=== PATIENT | female | born 1970 | race Hispanic/Latino ===

== ENCOUNTER → 2016-05-24 | Outpatient (CLI) | payer OTHER ==
[~2016-05-24] MED LIST: DOCU100C37 PO; FERR-74 PO; HYDR-3816 PO; IBUP-1773 PO; SIME80TA16 PO
--- NOTE | 2016-05-24 16:02 | Diagnostic Imaging Report ---
INDICATION: Uterine fibroids. EXAMINATION: Pelvic sonogram. FINDINGS: The uterus measures 12.0 x 10.1 x 9.1 cm. There is a large fibroid in the uterine fundus measuring 7.3 x 6.5 x 7.4 cm which has not appreciably changed in size compared to the exam from 06/04/2015. The ovaries were not seen. IMPRESSION: Large uterine fibroid which does not appear to have increased in size compared to the prior exam done on 06/04/2015. Dictated by: Dictated on workstation # [id number]
== END ==
LOC: RAD 13:19
PROVIDERS: ATTEND Obstetrics & Gynecology
DX: D25.2 Subserosal leiomyoma of uterus (principal); D50.0 Iron deficiency anemia secondary to blood loss (chronic)
CPT/HCPCS: 76830; 76856

== ENCOUNTER 2016-06-20 10:41 | Outpatient (CLI) | payer OTHER ==
[~2016-06-20] VITALS: Ht 149.9 cm; Wt 59.4 kg
[2016-06-20] MEDS ORDERED: FERR-74 PO (10:54)
[2016-06-20 10:55] VITALS: BP 121/76
[2016-06-20 11:28] LABS: BASOPHILS % (AUTO) 0 % (0-10); EOSINOPHILS # (AUTO) 0.2 10^3/uL (0.0-0.3); EOSINOPHILS % (AUTO) 3 % (0-10); LYMPHOCYTES # (AUTO) 2.1 X 10^3 (1.0-4.0); LYMPHOCYTES % (AUTO) 29 % (12-44); MEAN CORPUSCULAR HEMOGLOBIN 28 PG (25-34); MEAN CORPUSCULAR HGB CONC 33 G/DL (32-36); MEAN CORPUSCULAR VOLUME 83 FL (80-99); MEAN PLATELET VOLUME 11.6 FL (7.4-10.4); MONOCYTES # (AUTO) 0.5 X 10^3 (0.0-1.0); MONOCYTES % (AUTO) 7 % (0-12); NEUTROPHILS # (AUTO) 4.4 X 10^3 (1.8-7.8); NEUTROPHILS % (AUTO) 60 % (42-75); PLATELET COUNT 273 10^3/uL (130-400); RED BLOOD COUNT 4.66 10^6/uL (4.35-5.85); RED CELL DISTRIBUTION WIDTH 20.4 % (10.0-14.5); WHITE BLOOD COUNT 7.2 10^3/uL (4.3-11.0)
[2016-06-26] MEDS ORDERED: HYDR-3816 PO (16:54)
[2016-06-26] MEDS ORDERED: DOCU100C37 PO (16:54)
[2016-06-26] MEDS ORDERED: SIME80TA16 PO (16:54)
[2016-06-26] MEDS ORDERED: IBUP-1773 PO (16:54)
== END 2016-06-20 13:24 | disposition home or self-care (01) ==
LOC: PREOP 10:41
PROVIDERS: ATTEND Obstetrics & Gynecology
DX: Z01.812 Encounter for preprocedural laboratory examination (principal); Z11.2 Encounter for screening for other bacterial diseases; D25.9 Leiomyoma of uterus, unspecified; D50.9 Iron deficiency anemia, unspecified
CPT/HCPCS: 36415; 85025; 86850; 86900; 86901; 87081

== ENCOUNTER 2016-06-26 06:24 | Day surgery (SDC) | payer OTHER ==
[~2016-06-26] VITALS: Ht 149.9 cm; Wt 59.4 kg
[~2016-06-26 06:24] MED LIST changes: -DOCU100C37 PO; -HYDR-3816 PO; -IBUP-1773 PO; -SIME80TA16 PO
[2016-06-26] MEDS ORDERED: metroNIDAZOLE 500MG/100ML IVPB 100 ML ONE (06:50)
[2016-06-26] MEDS ORDERED: NS (IVPB) 50 ML ONE (06:50)
[2016-06-26] MEDS ORDERED: ceFAZolin 1,000 MG (ANCEF) VIAL ONE (06:50)
[2016-06-26] MEDS ORDERED: proPOfol 200 MG/20 ML (DIPRIVAN) VIAL IV ONE (07:05)
[2016-06-26] MEDS ORDERED: fentaNYL INJECTION 250 MCG/5 ML AMP ONE (07:05)
[2016-06-26] MEDS ORDERED: MIDAZOLAM 2 MG/2 ML (VERSED) VIAL ONE (07:05)
[2016-06-26] MEDS ORDERED: ROCURONIUM 50 MG/5 ML (ZEMURON) VIAL IV ONE (07:05)
[2016-06-26 07:12] LABS: ALANINE AMINOTRANSFERASE 78 U/L (0-55); ALBUMIN 4.1 G/DL (3.2-4.5); ANION GAP 11 MMOL/L (5-14); ASPARTATE AMINO TRANSFERASE 62 U/L (5-34); BILIRUBIN,TOTAL 0.2 MG/DL (0.1-1.0); BLOOD UREA NITROGEN 14 MG/DL (7-18); BUN/CREATININE RATIO 21; CARBON DIOXIDE 24 MMOL/L (21-32); CHLORIDE 107 MMOL/L (98-107); CREATININE SERUM 0.68 MG/DL (0.60-1.30); GFR ESTIMATED > 60; GLUCOSE 109 MG/DL (70-105); POTASSIUM 3.3 MMOL/L (3.6-5.0); SODIUM 142 MMOL/L (135-145); TOTAL PROTEIN 7.2 G/DL (6.4-8.2)
[2016-06-26] MEDS ORDERED: BUP/EPI 0.25% 1:200,000 (MARCAINE) 30 ML VIAL ONE (07:13)
[2016-06-26] MEDS ORDERED: CATHETER FLUSH 10 ML SYR IV PRN (07:15)
[2016-06-26] MEDS ORDERED: ceFAZolin 1 GM/NS 50 ML IVPB IV ONE ×2 (07:15)
[2016-06-26] MEDS ORDERED: metroNIDAZOLE 500 MG/100 ML IVPB (PRE-MIX) IV ONE (07:15)
--- NOTE | 2016-06-26 07:17 | Progress Note-Pre Operative ---
Pre-Operative Progress Note H&P Reviewed The H&P was reviewed, patient examined and no changes noted. Date H&P Reviewed: Jun 26, 2016 Time H&P Reviewed: 07:16 Pre-Operative Diagnosis: Abnormal uterine bleeding, uterine fibroid (failed medical mgmnt), anemia JOSEP REYNA MD Jun 26, 2016 07:17
[2016-06-26] MEDS ORDERED: LACTATED RINGERS 1,000 ML IV SCH ×2 (07:30→12:10)
[2016-06-26 07:33] VITALS: BP 134/78
--- NOTE | 2016-06-26 07:57 | OB/GYN Operative Report ---
Operative Report Date of Procedure: June 26, 2016 Preoperative Diagnosis: 45 y/o female with symptomatic uterine fibroids, abnormal uterine bleeding, failed medical management, iron deficiency anemia Postoperative Diagnosis: Same Procedure: Dilatation and curettage, robotic assisted total laparoscopic hysterectomy (uterine weight > 250g), bilateral salpingectomy, cystoscopy Surgeon: Josep Potter MD Assistants: Brittany Zee APRN who was medically necessary for retraction and exposure of vital structures Anesthesia: General endotracheal Estimated Blood Loss: 150 mL Specimens: Uterus/bilateral tubes to pathology Indications for Procedure: This is a 45 y/o female with the above diagnosis. Endometrial biopsy was negative. The patient desired definitive management after failing medical management for over a year. Risks, benefits and alternatives were discussed in detail with the patient and she elected to proceed and provided informed consent. Findings: Enlarged uterus with large posterior fibroid. Bilateral ovaries normal in appearance. Bilateral tubes with evidence of previous ligation. Normal appearing liver, bowel, stomach, bladder. Patent and functioning ureteral orifices. Procedure: The patient was taken to the operating room where sequential compression devices were placed prior to induction of anesthesia. Intravenous fluids were running. General endotracheal anesthesia was obtained without difficulty. She was then repositioned in the dorsal lithotomy position with the use of Yellofin stirrups. She was prepped and draped in the typical sterile fashion. A johnson catheter was placed in the bladder. A weighted speculum was placed in the vagina. The anterior lip of the cervix was grasped with a single tooth tenaculum. The uterus was sounded to 16cm. The V-Care uterine manipulator was then placed in the uterus to allow for manipulation, and the occluder balloon was insufflated. Gloves were changed and the attention was turned to the abdomen. 0.25% marcaine was injected into the skin where the planned incision was to be made. An 8mm incision was made approximately 5-6cm superior to the umbilicus. The Veress needle was advanced into the peritoneal cavity. The opening pressure was 5mm Hg. CO2 gas was then utilized to insufflate the abdomen to a pressure of 15 mmHg. The Veress needle was then removed and a 12 mm trochar was advanced into the peritoneal cavity. This was confirmed with the camera. An intra-abdominal survey revealed lack of injury to the underlying structures. 0.25% marcaine was then injected on the left 10cm lateral and 2-3 cm inferior to the original incision for an 8 mm port site. We injected on the right side as well, for an 8 mm port site 10cm lateral and 2-3cm inferior to the original incision. All ports were then placed under direct visualization. The patient was then placed in steep Trendelenburg position. The robot was then brought in from the patient' s left side for side-docking, and docking was accomplished without difficulty. I then started the robotic portion of the procedure, with the fenestrated biopolar device in the left arm and the monopolar scissors in the right. The left utero-ovarian ligament was isolated, coagulated and transected. The left tube was coagulated and transected as well. I continued this dissection in an anterior direction, opening the broad ligament and then dissecting the anterior peritoneum off the lower uterine segment and creating a bladder flap. The left ureter was then noted with peristalsis low in the pelvis. I then moved to the right side after the uterus was moved laterally to the left. The utero-ovarian ligament was coagulated and transected, and the tube was coagulated and transected in the same fashion. The dissection was continued in an anterior direction, opening the broad ligament and dissecting the anterior peritoneum off the lower uterine segment and completing the bladder flap. The posterior leaves of the broad ligament were then dissected and the uterine artery was skeletonized. The uterine artery was then isolated, coagulated and transected on the right. The vessels were allowed to fall away laterally. The same was completed on the left, with the posterior leaves of the broad ligament dissected and the uterine artery was skeletonized. The left uterine artery was then isolated, coagulated and transected. The vessels were allowed to fall away laterally. I started the colpotomy on the right side medial to the coagulated uterine artery. The green cervical cup was noted. The colpotomy was continued in a clockwise direction and completed anteriorly. The uterus was then delivered through the vagina with a great deal of difficulty, requiring careful vaginal morcellation. The vaginal cuff was then closed with 2-0 V-loc, starting with the left apex, incorporating the uterosacral ligament. The suture was not long enough to close the entire length of the cuff, thus another was utilized starting at the right apex, incorporating the uterosacral ligament. Following this, the vaginal cuff was noted to be hemostatic. All pedicles were inspected and were noted to be hemostatic. Kallial was placed on all pedicles to aid in hemostasis. I then performed cystoscopy with a 17 bengali cystoscope. Bilateral ureteral orifices were noted and functioning. This was then removed. The gas was then allowed to escape the abdomen and all instruments were removed from the abdomen. The skin was closed using 4-0 Monocryl in a subcuticular stitch. Following the case, instrument counts were correct. The patient was repositioned in the supine position and awakened from general anesthesia without difficulty. She was taken to recovery in stable condition. She will be observed overnight. Complications: None Disposition: Recovery, stable JOSEP POTTER MD Jun 26, 2016 07:57
[2016-06-26] MEDS: LACTATED RINGERS 1,000 ML IV PRN ×2 (08:25→11:45)
[2016-06-26] MEDS ORDERED: morphine INJ 10 MG/ML 1ML (SYR OR VIAL) ONE (10:42)
[2016-06-26] MEDS ORDERED: HYDROmorphone (DILAUDID) 2 MG/ML VIAL ONE (10:42)
[2016-06-26] MEDS ORDERED: NEOSTIGMINE (BLOXIVERZ ) 1 MG/1ML 10 ML VIAL ONE (10:46)
[2016-06-26] MEDS ORDERED: ONDANSETRON 4 MG/2 ML (SDV) Z0FRAN ONE (10:46)
[2016-06-26] MEDS ORDERED: METHYLENE BLUE 1% INJ 1 ML AMP ONE (10:46)
[2016-06-26] MEDS ORDERED: LACTATED RINGERS 1,000 ML IV ONE (10:46)
[2016-06-26] MEDS ORDERED: LACTATED RINGERS 2,000 ML IV ONE (10:46)
[2016-06-26] MEDS ORDERED: GLYCOPYRROLATE 0.2 MG/ML (ROBINUL) 2 ML VIAL ONE (10:46)
[2016-06-26] MEDS ORDERED: SEVOFLURANE (ULTANE) 15 ML INHAL SOLN ONE (10:46)
[2016-06-26] MEDS ORDERED: KETOROLAC 30 MG/ML VIAL ONE (10:46)
[2016-06-26] MEDS ORDERED: HYDROmorphone (DILAUDID) 2 MG/ML VIAL IVP PRN (11:00)
[2016-06-26] MEDS ORDERED: ONDANSETRON 4 MG/2 ML (SDV) Z0FRAN IVP PRN (11:00)
[2016-06-26] MEDS ORDERED: morphine INJ 10 MG/ML 1ML (SYR OR VIAL) IVP PRN (11:00)
[2016-06-26 12:10] VITALS: BP 144/70
[2016-06-26] MEDS ORDERED: ONDANSETRON 4 MG/2 ML (SDV) Z0FRAN IV PRN (12:15)
[2016-06-26] MEDS ORDERED: DOCUSATE SODIUM 100 MG (COLACE) CAP PO PRN (12:15)
[2016-06-26] MEDS ORDERED: SIMETHICONE 80 MG (MYLICON) CHEW PO PRN (12:15)
[2016-06-26] MEDS ORDERED: ANTACID SUSP 30 ML UDC (MYLANTA) PO PRN (12:15)
[2016-06-26] MEDS: HYDROcodone/APAP 7.5 MG/325 MG (LORTAB, LORCET PLUS) TABLET PO PRN (12:33)
[2016-06-26] MEDS ORDERED: IBUP-1773 PO (16:54)
[2016-06-26] MEDS ORDERED: HYDR-3816 PO (16:54)
[2016-06-26] MEDS ORDERED: SIME80TA16 PO (16:54)
[2016-06-26] MEDS ORDERED: DOCU100C37 PO (16:54)
--- NOTE | 2016-06-26 16:55 | Discharge Inst-Women's Service ---
Discharge Inst-Women's Serv Depart Medication/Instructions New, Converted or Re-Newed RX: RX on Chart Final Diagnosis Fibroid uterus, anemia, AUB Consults/Follow Up Additional Follow Up: Yes Orders/Referrals 10-[address] Potter [address] Potter Activity Driving Instructions: No Driving for 1 Week (or while taking narcotic pain medications) NO SMOKING: NO SMOKING Nothing Inside Vagina: No Douching, No Welda, No Tampons Other Activity No lifting over 10 lb until cleared No strenuous activity until cleared Diet Discharge Diet: No Restrictions Symptoms to Report to : Bleeding Excessive, Pain Increased, Fever Over 101 Degrees F, Pain/Pressure in Chest, Vaginal Bleeding Increase, Dizziness/Fainting , Nausea/Vomiting, Shortness of Breath For Any Problems or Questions: Contact Your Physician, Go to Emergency Room Skin/Wound Care Infection Signs and Symptoms: Increased Redness, Foul Odor of Wound, Increased Drainage Operative Area Clean and Dry: Keep Incision Clean/Dry Stitches/[place]/Dermabond: Dermabond, Care of Stitches Bathing Instructions: JOSEP Pereyra MD Jun 26, 2016 16:55
[2016-06-26 17:47] VITALS: BP 141/77
[2016-06-26 19:45] VITALS: BP 137/77
[2016-06-26] MEDS: KETOROLAC 30 MG/ML VIAL IV PRN (19:46)
[2016-06-27 00:50] VITALS: BP 130/75
[2016-06-27] MEDS: KETOROLAC 30 MG/ML VIAL IV PRN (00:50)
[2016-06-27 04:55] VITALS: BP 108/66
[2016-06-27] MEDS ORDERED: IBUPROFEN 600 MG (MOTRIN) TAB PO PRN (06:00)
[2016-06-27 09:06] VITALS: BP 120/67
[2016-06-27] MEDS: HYDROcodone/APAP 7.5 MG/325 MG (LORTAB, LORCET PLUS) TABLET PO PRN (09:06)
--- NOTE | 2016-06-27 09:59 | Progress Note-Standard ---
Standard Progress Note Progress Notes/Assess & Plan Progress/Assessment & Plan Patient doing well. Has not had pain medication since yesterday am. Tolerating diet but has not ambulated this am. Has voided a few times this am but not on the I/O chart. Has 350 out at 0900. Iv has stopped. Vital Sign - Last 12Hours 06/27/16 06/27/16 06/27/16 00:50 04:55 09:06 Temp 99.8 99.8 99.8 Pulse 76 82 78 Resp 18 18 18 B/P (MAP) 130/75 108/66 120/67 Pulse Ox 94 95 96 O2 Delivery Room Air Room Air Room Air Intake and Output 06/27/16 00:00 Intake Total 1300 ml Output Total 100 ml Balance 1200 ml Laboratory Tests Test 06/26/16 06:10 06/26/16 06:42 Range/Units Urine Test NEGATIVE NEGATIVE Sodium Level 142 135-145 MMOL/L Potassium Level 3.3 L 3.6-5.0 MMOL/L Chloride Level 107 98-107 MMOL/L Carbon Dioxide Level 24 21-32 MMOL/L Anion Gap 11 5-14 MMOL/L Blood Urea Nitrogen 14 7-18 MG/DL Creatinine 0.68 0.60-1.30 MG/DL Estimat Glomerular Filtration Rate > 60 BUN/Creatinine Ratio 21 Glucose Level 109 H 70-105 MG/DL Calcium Level 9.0 8.5-10.1 MG/DL Total Bilirubin 0.2 0.1-1.0 MG/DL Aspartate Amino Transf (AST/SGOT) 62 H 5-34 U/L Alanine Aminotransferase (ALT/SGPT) 78 H 0-55 U/L Alkaline Phosphatase 101 40-136 U/L Total Protein 7.2 6.4-8.2 G/DL Albumin 4.1 3.2-4.5 G/DL a: pod #1 s/p RaTH, bilateral salpingectomy p: plan discharge today XAVI ROLLE DO Jun 27, 2016 09:59
[2016-06-27 10:41] LABS: ANION GAP 11 MMOL/L (5-14); BLOOD UREA NITROGEN 11 MG/DL (7-18); BUN/CREATININE RATIO 12; CALCIUM 8.7 MG/DL (8.5-10.1); CARBON DIOXIDE 26 MMOL/L (21-32); CHLORIDE 104 MMOL/L (98-107); CREATININE SERUM 0.95 MG/DL (0.60-1.30); GFR ESTIMATED > 60; GLUCOSE 131 MG/DL (70-105); POTASSIUM 3.7 MMOL/L (3.6-5.0); SODIUM 141 MMOL/L (135-145)
[2016-06-27 12:31] VITALS: BP 93/55
--- NOTE | 2016-06-27 12:58 | Anesthesia-General Post-Op ---
General Patient Condition Mental Status/LOC: Same as Preop Cardiovascular: Satisfactory Nausea/Vomiting: Absent Respiratory: Satisfactory Pain: Controlled Complications: Absent Post Op Complications Complications None Follow Up Care/Instructions Patient Instructions None needed. Anesthesia/Patient Condition Patient Condition Patient is doing well, no complaints, stable vital signs, no apparent adverse anesthesia problems. No complications reported per nursing. CLINTON JACKSON CRNA Jun 27, 2016 12:57
[2016-06-27 13:00] VITALS: BP 120/67
== END 2016-06-27 13:00 | disposition home or self-care (01) ==
LOC: SDC 06:24 → WS 12:12 → SDC 06-27 13:00
PROVIDERS: ATTEND Obstetrics & Gynecology
DX: N72 Inflammatory disease of cervix uteri (principal); D50.9 Iron deficiency anemia, unspecified; N85.2 Hypertrophy of uterus
CPT/HCPCS: 36415; 80048; 80053; 84703; 88307; 94664; 96361; 96375; 96376

== ENCOUNTER → 2016-08-02 | Outpatient (CLI) | payer SELFPAY ==
[~2016-08-02] MED LIST changes: +DOCU100C37 PO; +HYDR-3816 PO; +IBUP-1773 PO; +SIME80TA16 PO
== END ==
LOC: LAB 14:00
PROVIDERS: ATTEND Family Medicine
DX: R87.9 Unspecified abnormal finding in specimens from female genital organs (principal)
CPT/HCPCS: 82570

== ENCOUNTER → 2016-08-03 | Outpatient (CLI) | payer OTHER ==
[~2016-08-03] MED LIST changes: +NS IV 500 ML 500 ML IV ONE
[2016-08-03] MEDS: NS 100 ML (IVPB) BAG IV ONE (15:40)
[2016-08-03] MEDS: IOHEXOL 350 MG/ML 100 ML (OMNIPAQUE 350) VIAL IV ONE (15:40)
[2016-08-03] MEDS: CATHETER FLUSH 10 ML SYR IV PRN (15:40)
--- NOTE | 2016-08-03 17:20 | Diagnostic Imaging Report ---
PROCEDURE: CT abdomen and pelvis with and without contrast. TECHNIQUE: Precontrast acquisitions were acquired through the abdomen and pelvis. Multiple contiguous axial images were obtained through the abdomen and pelvis after the administration of intravenous contrast. INDICATION: Fluid discharge from the vagina. The patient has had recent hysterectomy. FINDINGS: The unenhanced phase demonstrates moderate right hydroureteronephrosis. The dilated right ureter is seen to the right side of the pelvis where there is soft tissue fullness. On the postcontrast images, there is delayed nephrogram on the right side; however, there is excretion in the right collecting system seen on delayed phase images. 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 There is normal left renal enhancement, excretion and no hydronephrosis or hydroureter. The urinary bladder appears normal. The lung bases demonstrate minimal atelectasis. The liver, the gallbladder, the spleen, and the adrenals appear unremarkable. The pancreas appears unremarkable. The abdominal aorta is normal in caliber. No para-aortic significantly enlarged lymph node is seen. There is no significant free fluid or fluid collection in the abdomen and pelvis. The osseous structures appear grossly unremarkable. IMPRESSION: 1. There is moderate right hydroureteronephrosis. The obstruction appears to be related to soft tissue thickening near the distal-most aspect of the right ureter adjacent to the right side of the vagina which may relate to edematous postoperative tissue with no definite mass, fluid collection or hematoma. The distal 1-2 CM of the right ureter is not filled with contrast on this exam. 2. 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 The findings on this scan were discussed with Dr. Potter at the time of dictation. Dictated by: Dictated on workstation # [id number]
== END ==
LOC: RAD 13:59
PROVIDERS: ATTEND Obstetrics & Gynecology
DX: R87.9 Unspecified abnormal finding in specimens from female genital organs (principal); Z90.710 Acquired absence of both cervix and uterus; N13.4 Hydroureter
CPT/HCPCS: 74178